=== PATIENT | female | born 1980 | race Caucasian/White ===

== ENCOUNTER 2023-05-13 08:16 | Emergency (ER) | payer BC ==
[2023-05-13 08:28] VITALS: PULSE 84; TEMP 98.2; BMI 36.9
[2023-05-13] MEDS ORDERED: LIDOCAINE 5% TOPICAL PATCH TP ONE (09:45)
[2023-05-13] MEDS ORDERED: ACETAMINOPHEN 500 MG TABLET (FP) PO ONE (09:45)
[2023-05-13] MEDS ORDERED: IBUPROFEN 600 MG TABLET (FP) PO ONE ×2 (09:45→09:48)
[2023-05-13] MEDS ORDERED: LIDOCAINE 4% PATCH TP ONE (09:48)
[2023-05-13] MEDS ORDERED: ACETAMINOPHEN 325 MG TABLET (FP) ONE (09:48)
[2023-05-13] MEDS ORDERED: oxyCODONE HCL 5 MG TABLET PO ONE (10:30)
[2023-05-13] MEDS ORDERED: oxyCODONE HCL 5 MG TABLET ONE (10:47)
[2023-05-13 12:18] VITALS: BP 125/67; RESP 19
[2023-05-13] MEDS ORDERED: LIDOCAINE PATCH REMOVAL MC ONE (22:00)
== END 2023-05-13 12:13 | disposition home or self-care (01) ==
LOC: JER 08:16
DX: M25.562 Pain in left knee (principal); M25.462 Effusion, left knee
CPT/HCPCS: 73562-TC-LT-FY; 99283-25

== ENCOUNTER 2023-10-13 10:10 | Emergency (ER) | payer BC ==
[2023-10-13 12:19] VITALS: BMI 36.9
[2023-10-13 12:22] LABS: EPI CELLS 9 /uL (0-25.1); HYALINE CASTS 2 /uL (0-3.1); URINE APPEARANCE CLEAR; URINE BACTERIA 10 /uL (0-1359); URINE BILIRUBIN NEGATIVE (NEGATIVE); URINE COLOR YELLOW; URINE GLUCOSE (UA) NEGATIVE (NEGATIVE); URINE KETONE TRACE (NEGATIVE); URINE LEUK ESTERASE NEGATIVE (NEGATIVE); URINE NITRITE NEGATIVE (NEGATIVE); URINE PROTEIN 1+ (NEGATIVE); URINE RBC 58 /uL (0-23.9); URINE WBC 8 /uL (0-25.8)
[2023-10-13] MEDS: KETOROLAC TROMETHAMINE 15 MG/ML VIAL IVPUSH ONE (12:30)
[2023-10-13] MEDS ORDERED: KETOROLAC TROMETHAMINE 15 MG/ML VIAL ONE (13:06)
[2023-10-13 13:59] LABS: BASO % 0.8 % (0-2.0); EOS % 1.9 % (0-4.5); HEMATOCRIT 33.6 % (32.4-45.2); HEMOGLOBIN 10.8 GM/dL (10.7-15.3); LYMPH % 20.9 % (8-40); MCH 24.9 pg (25.7-33.7); MCHC 32.1 g/dl (32.0-36.0); MEAN CELL VOLUME 77.5 fl (80-96); MEAN PLT VOLUME 7.9 fl (7.5-11.1); MONO % 4.3 % (3.8-10.2); NEUT % 72.1 % (42.8-82.8); PLATELET COUNT 135 10^3/uL (134-434); RBC 4.33 M/mm3 (3.60-5.2); RDW 14.6 % (11.6-15.6); WHITE BLOOD COUNT 3.1 K/mm3 (4.0-10.0)
[2023-10-13 14:14] LABS: CHLORIDE 108 mmol/L (98-107); SODIUM 139 mmol/L (136-145)
[2023-10-13 14:15] LABS: ANION GAP 3 mmol/L (4-13); BLOOD UREA NITROGEN 14.8 mg/dL (7-18); CALCIUM 8.7 mg/dL (8.5-10.1); CO2 28 mmol/L (21-32)
[2023-10-13 14:16] LABS: ALBUMIN 3.5 g/dl (3.4-5.0); GLUCOSE,RANDOM 96 mg/dL (74-106)
[2023-10-13 14:17] LABS: MAGNESIUM 2.2 mg/dL (1.8-2.4)
[2023-10-13 14:20] LABS: SGOT/AST 58 U/L (15-37); SGPT/ALT 85 U/L (13-61)
[2023-10-13 14:23] LABS: ALK PHOS 77 U/L (45-117); BILIRUBIN,TOTAL 0.4 mg/dL (0.2-1); TOT PROT 6.7 g/dl (6.4-8.2)
[2023-10-13 14:36] LABS: ERYTHROCYTE SEDIMENTATION RATE 17 mm/hr (0-20)
[2023-10-13] MEDS: SODIUM CHLORIDE 500 ML IV STA (14:42)
[2023-10-13 16:04] VITALS: BP 118/60; PULSE 79; RESP 19; TEMP 99.5
== END 2023-10-13 17:35 | disposition home or self-care (01) ==
LOC: JER 10:10
PROC: 3E0333Z Introduction of Anti-inflammatory into Peripheral Vein, Percutaneous Approach (ICD-10-PCS; principal; 2023-10-13)
PROC: 3E0337Z Introduction of Electrolytic and Water Balance Substance into Peripheral Vein, Percutaneous Approach (ICD-10-PCS; 2023-10-13)
DX: M25.562 Pain in left knee (principal); R50.9 Fever, unspecified; M25.462 Effusion, left knee; M25.571 Pain in right ankle and joints of right foot; M25.572 Pain in left ankle and joints of left foot; M25.511 Pain in right shoulder; M25.512 Pain in left shoulder; M25.532 Pain in left wrist; M25.531 Pain in right wrist; M25.552 Pain in left hip; Z20.822 Contact with and (suspected) exposure to COVID-19
CPT/HCPCS: 0241U-QW; 36415; 72070-TC-FY; 80053; 81003; 82550; 82553; 83735; 84443; 84703; 85025; 85651; 86140; 86618; 87040; 87086; 99284-25